=== PATIENT | male | born 1940 | race Caucasian/White ===

== ENCOUNTER 2025-10-25 17:08 | Emergency (ER) | payer MEDICARE, SELFPAY ==
[2025-10-25] VITALS (22 sets, daily range): BP systolic 64–116; BP diastolic 42–70; PULSE 72–105; RESP 13–24; TEMP 35.3–36.4; O2SAT 96–100
--- NOTE | ~2025-10-25 | CT_ITS ---
PROCEDURE: CTA abdomen pelvis INDICATION: GI bleeding . COMPARISON: None. TECHNIQUE: Axial 2.5 mm images of the abdomen and pelvis were obtained without and with infusion of 100 cc [id number] intravenous contrast. On an independent workstation, 0.625 mm reformatted images were utilized to render MIP and MPR reconstructed images of the abdominal and pelvic vasculature. FINDINGS: The abdominal aorta, visceral vessels and renal arteries demonstrate normal caliber and patency. No hemodynamically significant stenosis or aneurysm is identified. The iliac and visualized femoral vessels are widely patent. No aneurysm or hemodynamically significant stenosis is noted. There is a contrast blush within the cecum suggestive of active gastrointestinal bleed. NONVASCULAR FINDINGS: The liver parenchyma is unremarkable. No intrahepatic mass or ductal dilatation is evident. The gallbladder is unremarkable. The pancreas and spleen are normal in appearance. The adrenal glands are symmetric in size. The kidneys are unremarkable. No intrarenal stones are noted. There is no hydronephrosis. There is colonic diverticulosis without evidence of acute diverticulitis. The bladder and rectum are normal in appearance. No free fluid or air is evident. There is no abdominal or pelvic lymphadenopathy. The lower thoracic and lumbar spines are unremarkable. The lung bases are clear. IMPRESSION: Contrast blush within the cecum suggestive of active GI bleed. All CT scans at this facility are performed using low dose modulation techniques as appropriate to perform exam including the following: automated exposure control; use of iterative reconstruction technique; adjustment of the mA and/or kV according to patient size (this includes techniques or standardized protocols for targeted exams where dose is matched to indication/reason for exam). Reviewed, dictated and finalized at location [facility] IMPRESSION: Contrast blush within the cecum suggestive of active GI bleed. All CT scans at this facility are performed using low dose modulation techniqu es as appropriate to perform exam including the following: automated exposure c ontrol; use of iterative reconstruction technique; adjustment of the mA and/or kV according to patient size (this includes techniques or standardized protocol s for targeted exams where dose is matched to indication/reason for exam).
[2025-10-25 17:31] LABS: Hematocrit 30.2 % (42.0-52.0); Hemoglobin 9.9 g/dL (14.0-18.0); Immature Granulocyte Percent A 0.5 % (0-0.5); Lymphocytes Absolute Auto 1.84 K/mm3 (0.9-3.2); Mean Corpuscular HGB Conc 32.8 g/dl (32-36); Mean Corpuscular Hemoglobin 29.0 pg (26-34); Mean Corpuscular Volume 88.6 fl (80-100); Nucleated Red Blood Cells Absolute Auto 0.000 K/mm3 (0.0-0.012); Nucleated Red Blood Cells Perc 0.0 % (0.0-0.2); Platelet Count Result 155 k/mm3 (150-375); Red Blood Count 3.41 M/mm3 (4.6-6.20); White Blood Count 8.2 K/mm3 (4.5-10.0)
--- NOTE | 2025-10-25 17:36 | ECG_ITS ---
Test Date: 2025-10-25 17:40:27 Measurements Intervals [place] Rate: 88 P: 51 CT: 185 QRS: -19 QRSD: 77 T: 49 QT: 355 QTc: 430 Interpretive Statements SINUS RHYTHM POSSIBLE LEFT ATRIAL ENLARGEMENT DELAYED PRECORDIAL R/S TRANSITION BASELINE ARTIFACT- I, III, AVR, AVL, V-V2 BORDERLINE ECG No previous ECG available for comparison Electronically Signed On 10-25-2025 20:16:08 [employer] by Raoul Santa D.O.
[2025-10-25 17:41] LABS: Alanine Aminotransferase 19 U/L (6-50); Albumin Level 3.1 g/dL (3.5-5.1); Alkaline Phosphatase 42 U/L (38-126); Anion Gap 4 mmol/L (4-12); Aspartate Amino Transferase 25 U/L (17-59); Bilirubin,Total 0.8 mg/dL (0.2-1.3); Blood Urea Nitrogen 32 mg/dL (9-20); Calcium 8.0 mg/dL (8.4-10.2); Carbon Dioxide 21 mmol/L (22-30); Chloride 109 mmol/L (98-107); Estimated CRCL calculation 43 ml/min; Estimated Glomerular Filt Rate > 60; Glucose 167 mg/dL (65-110); Potassium 3.8 mmol/L (3.4-5.0); Sodium 134 mmol/L (137-145); Total Protein 5.9 g/dL (6.3-8.2)
--- NOTE | 2025-10-25 17:47 | ED_ITS ---
HPI - GI Bleed General Chief complaint: GI Bleed <JAMAAL Hills Last Filed: 10/26/25 01:42> Stated complaint: Blood in stool <JAMAAL Hills Last Filed: 10/26/25 01:42> Time Seen by Provider: 10/25/25 17:30 <JAMAAL Hills Last Filed: 10/26/25 01:42> Source: patient <JAMAAL Hills Last Filed: 10/26/25 01:42> Mode of arrival: EMS <JAMAAL Hills Last Filed: 10/26/25 01:42> Limitations: no limitations <JAMAAL Hills Last Filed: 10/26/25 01:42> History of Present Illness HPI Narrative: This is an 85-year-old male that presents to the emergency department for GI bleeding. Reports he has had several episodes of bright red blood per rectum today. No previous history of GI bleeding. He take s a baby aspirin daily. < JAMAAL Hills Last Filed: 10/26/25 01:42> Related Data Allergies/Adverse reactions: Allergies Allergy/AdvReac Type Severity Reaction Status Date / Time erythromycin base Allergy Intermediate Abdominal Verified 10/25/25 17:10 Pain <JAMAAL Hills Last Filed: 10/26/25 01:42> Review of Systems 2 Review of Systems: All systems reviewed & are unremarkable except as noted in HPI and below <JAMAAL Hills Last Filed: 10/26/25 01:42> Exam 2 Narrative: GENERAL: Pale, in no acute distress. HEAD: Normocephalic, atraumatic. EYES: EOMI. CHEST: Clear to auscultation. No respiratory distress. No wheezes rales or rhonchi HEART: Regular rate and rhythm. No murmur heard. Normal peripheral pulses. ABDOMEN: Soft, nontender, nondistended, normal active bowel sounds. EXTREMITIES: Normal range of motion. No edema. SKIN: Warm, dry, no rash. NEURO: No focal deficits. Alert and oriented x3. PSYCH: Normal mood and affect RECTAL: No obvious hemorrhoids or fissures. Bright red blood in the rectum <Mandie Brown PA-C - Last Filed: 10/26/25 01:42> Course Course Emergency Course: Patient and family initially requested for patient to be transferred to [facility]. They do not have Interventional Radiology on-call, they will not be able to accept the transfer <Mandie Brown PA-C - Last Filed: 10/26/25 01:42> TECHNICAL SYSTEMS ARCHITECT/PA Physician Supervision This visit was performed by both a physician and an Advanced Practice Provider. I performed all aspects of the Medical Decision Making as documented. I was informed that the patient had initially responded to IV fluids but was becoming hypotensive again prior to receiving blood transfusion and after 2L IVF. I presented to the patient's bedside in readjusted the cough which does continue to demonstrate hypotension. Patient is exceedingly pleasant but pale and diaphoretic. I did advise PA to contact GI again given the change in status and need for more urgent intervention. PA discussed with Dr Celeste who at first thought prep could be performed through NG tube. Patient continues to be hypotensive. Recommended peripheral pressors and likely need to transfer for definitive treatment to control the source of bleeding as I suspect once this is done and he is continued to be resuscitated , he will not likely require continued pressors. RADHA notes his EKG and troponin had been checked initially. Patient's preference was [facility] but PA attempted transfer , IR unavailable at this hour so patient transferred to tertiary care center. I did briefly re- evaluate patient again as helicopter crew arrived. <Kristin Elena MD - Last Filed: 10/26/25 10:31> Vital Signs Vital signs: Vital Signs Temperature 97.5 F L 10/25/25 17:12 Pulse Rate 99 10/25/25 17:12 Respiratory Rate 19 10/25/25 17:12 Blood Pressure 91/53 L 10/25/25 17:12 Pulse Oximetry 100 10/25/25 17:12 Oxygen Delivery Room Air 10/25/25 17:12 Temperature 96.5 F L 10/25/25 22:05 Pulse Rate 100 10/25/25 22:31 Respiratory Rate 24 H 10/25/25 22:31 Blood Pressure 108/57 L 10/25/25 22:31 Pulse Oximetry 98 10/25/25 22:31 Oxygen Delivery Room Air 10/25/25 17:12 <Mandie Brown PA-C - Last Filed: 10/26/25 01:42> Vital Signs Temperature 97.5 F L 10/25/25 17:12 Pulse Rate 99 10/25/25 17:12 Respiratory Rate 19 10/25/25 17:12 Blood Pressure 91/53 L 10/25/25 17:12 Pulse Oximetry 100 10/25/25 17:12 Oxygen Delivery Room Air 10/25/25 17:12 Temperature 96.5 F L 10/25/25 22:05 Pulse Rate 100 10/25/25 22:31 Respiratory Rate 24 H 10/25/25 22:31 Blood Pressure 108/57 L 10/25/25 22:31 Pulse Oximetry 98 10/25/25 22:31 Oxygen Delivery Room Air 10/25/25 17:12 <Kristin Elena MD - Last Filed: 10/26/25 10:31> Transfer Transfered to: [facility] <Mandie Brown PA-C - Last Filed: 10/26/25 01:42> Transportation: [facility] <Mandie Brown PA-C - Last Filed: 10/26/25 01:42> Transfer rationale: Acute GI bleeding, in need of higher level care, interventional Radiology <Mandie Brown PA-C - Last Filed: 10/26/25 01:42> Accepting physician: Dr. Flores <Mandie Brown PA-C - Last Filed: 10/26/25 01:42> [facility] Narrative Medical decision making narrative: Patient presents to the emergency department for for bright red blood per rectum. Several episodes today. Patient's blood pressure soft upon arrival, this did respond IV fluids initially. Patient is not on anticoagulation. Initial hemoglobin 9.9. CTA abdomen pelvis showing contrast blush within the cecum suggestive of active GI bleed. Patient started become more pale, diaphoretic, blood pressures in 60s. Blood transfusion was started. Repeat hemoglobin 7.5. Pressures remained soft, Levophed was started peripherally. Dr. Celeste, GI [facility]. [facility] Patient was transferred via helicopter due to the critical nature of his illness/urgent need for intervention <Mandie Brown PA-C - Last Filed: 10/26/25 01:42> Differential Diagnosis Differential Diagnosis: Diverticulitis, hemorrhoid, polyp, AVM, colitis <Mandie Brown PA-C - Last Filed: 10/26/25 01:42> Lab Data MDM Lab Attestation statement: I personally reviewed the patient's lab results. <Mandie Brown PA-C - Last Filed: 10/26/25 01:42> Result diagrams: 10/25/25 19:57 10/25/25 17:25 <JAMAAL Hills Last Filed: 10/26/25 01:42> Labs: Lab Results 10/25/25 10/25/25 Range/Units 17:25 19:57 WBC 8.2 (4.5-10.0) K/mm3 RBC 3.41 L (4.6-6.20) M/mm3 Hgb 9.9 L 7.5 L (14.0-18.0) g/dL Hct 30.2 L 22.7 L (42.0-52.0) % MCV 88.6 (80-100) fl MCH 29.0 (26-34) pg MCHC 32.8 (32-36) g/dl RDW 14.2 (11.5-14.5) % Plt Count 155 (150-375) k/mm3 MPV 9.9 (7.4-10.4) fl Immature Gran % (Auto) 0.5 (0-0.5) % Neut % (Auto) 69.4 (45.5-73.1) % Lymph % (Auto) 22.5 (18.3-44.2) % Cameron % (Auto) 7.0 (2.6-8.5) % Eos % (Auto) 0.2 (0-4.4) % Baso % (Auto) 0.4 (0.2-1.2) % Lymph # (Auto) 1.84 (0.9-3.2) K/mm3 Cameron # (Auto) 0.6 (0.1-0.6) K/mm3 Eos # (Auto) 0.0 (0-0.3) K/mm3 Baso # (Auto) 0.0 (0.0-0.1) K/mm3 Abs Immat Gran (auto) 0.04 H (0.00-0.031) K/mm3 Absolute Neuts (auto) 5.7 (1.3-6.7) K/mm3 Absolute Nucleated RBC 0.000 (0.0-0.012) K/mm3 Nucleated RBC % 0.0 (0.0-0.2) % PT 15.5 H (11.1-14.7) Seconds INR 1.2 APTT 22.8 (22.3-36.8) Seconds Sodium 134 L (137-145) mmol/L Potassium 3.8 (3.4-5.0) mmol/L Chloride 109 H (98-107) mmol/L Carbon Dioxide 21 L (22-30) mmol/L Anion Gap 4 (4-12) mmol/L BUN 32 H (9-20) mg/dL Creatinine 1.10 (0.7-1.3) mg/dL Estim Creat Clear Calc 43 ml/min Estimated GFR > 60 (59 - ) Glucose 167 H (65-110) mg/dL Calcium 8.0 L (8.4-10.2) mg/dL Total Bilirubin 0.8 (0.2-1.3) mg/dL AST 25 (17-59) U/L ALT 19 (6-50) U/L Alkaline Phosphatase 42 (38-126) U/L Troponin I < 0.012 (0.000-0.034) ng/mL Total Protein 5.9 L (6.3-8.2) g/dL Albumin 3.1 L (3.5-5.1) g/dL Blood Type AB Positive Antibody Screen Negative Crossmatch See Detail <Mandie Brown PA-C - Last Filed: 10/26/25 01:42> Lab Results 10/25/25 10/25/25 Range/Units 17:25 19:57 WBC 8.2 (4.5-10.0) K/mm3 RBC 3.41 L (4.6-6.20) M/mm3 Hgb 9.9 L 7.5 L (14.0-18.0) g/dL Hct 30.2 L 22.7 L (42.0-52.0) % MCV 88.6 (80-100) fl MCH 29.0 (26-34) pg MCHC 32.8 (32-36) g/dl RDW 14.2 (11.5-14.5) % Plt Count 155 (150-375) k/mm3 MPV 9.9 (7.4-10.4) fl Immature Gran % (Auto) 0.5 (0-0.5) % Neut % (Auto) 69.4 (45.5-73.1) % Lymph % (Auto) 22.5 (18.3-44.2) % Cameron % (Auto) 7.0 (2.6-8.5) % Eos % (Auto) 0.2 (0-4.4) % Baso % (Auto) 0.4 (0.2-1.2) % Lymph # (Auto) 1.84 (0.9-3.2) K/mm3 Cameron # (Auto) 0.6 (0.1-0.6) K/mm3 Eos # (Auto) 0.0 (0-0.3) K/mm3 Baso # (Auto) 0.0 (0.0-0.1) K/mm3 Abs Immat Gran (auto) 0.04 H (0.00-0.031) K/mm3 Absolute Neuts (auto) 5.7 (1.3-6.7) K/mm3 Absolute Nucleated RBC 0.000 (0.0-0.012) K/mm3 Nucleated RBC % 0.0 (0.0-0.2) % PT 15.5 H (11.1-14.7) Seconds INR 1.2 APTT 22.8 (22.3-36.8) Seconds Sodium 134 L (137-145) mmol/L Potassium 3.8 (3.4-5.0) mmol/L Chloride 109 H (98-107) mmol/L Carbon Dioxide 21 L (22-30) mmol/L Anion Gap 4 (4-12) mmol/L BUN 32 H (9-20) mg/dL Creatinine 1.10 (0.7-1.3) mg/dL Estim Creat Clear Calc 43 ml/min Estimated GFR > 60 (59 - ) Glucose 167 H (65-110) mg/dL Calcium 8.0 L (8.4-10.2) mg/dL Total Bilirubin 0.8 (0.2-1.3) mg/dL AST 25 (17-59) U/L ALT 19 (6-50) U/L Alkaline Phosphatase 42 (38-126) U/L Troponin I < 0.012 (0.000-0.034) ng/mL Total Protein 5.9 L (6.3-8.2) g/dL Albumin 3.1 L (3.5-5.1) g/dL Blood Type AB Positive Antibody Screen Negative Crossmatch See Detail <Kristin Elena MD - Last Filed: 10/26/25 10:31> Imaging Data Radiologist's impression: ITS Impressions Abdomen/Pelvis CTA 10/25/25 18:39 IMPRESSION: Contrast blush within the cecum suggestive of active GI bleed. All CT scans at this facility are performed using low dose modulation techniques as appropriate to perform exam including the following: automated exposure control; use of iterative reconstruction technique; adjustment of the mA and/or kV according to patient size (this includes techniques or standardized protocols for targeted exams where dose is matched to indication/reason for exam). <Mandie Brown PA-C - Last Filed: 10/26/25 01:42> ITS Impressions Abdomen/Pelvis CTA 10/25/25 18:39 IMPRESSION: Contrast blush within the cecum suggestive of active GI bleed. All CT scans at this facility are performed using low dose modulation techniques as appropriate to perform exam including the following: automated exposure control; use of iterative reconstruction technique; adjustment of the mA and/or kV according to patient size (this includes techniques or standardized protocols for targeted exams where dose is matched to indication/reason for exam). <Kristin Elena MD - Last Filed: 10/26/25 10:31> Critical Care Time Critical Care Time Critical Care Time: Yes <Mandie Brown PA-C - Last Filed: 10/26/25 01:42> Time Type: Continuous <Mandie Brown PA-C - Last Filed: 10/26/25 01:42> Initial evaluation, discuss w/ involved parties, attempting to gather old records: 10 minutes <Mandie Brown PA-C - Last Filed: 10/26/25 01:42> Documenting medical record: 15 minutes <Mandie Brown PA-C - Last Filed: 10/26/25 01:42> Review of results (EKG's, labs, imaging): 10 minutes <Mandie Brown PA-C - Last Filed: 10/26/25 01:42> Serial repeat bedside evaluation: 20 minutes <Mandie Brown PA-C - Last Filed: 10/26/25 01:42> Discussing case with multiple memebers of the care team and consultants: 20 minutes <Mandie Brown PA-C - Last Filed: 10/26/25 01:42> Total Critical Care Time: 75 <Mandie Brown PA-C - Last Filed: 10/26/25 01:42> 75 <Kristin Elena MD - Last Filed: 10/26/25 10:31> Discharge Plan Discharge Clinical Impression: Acute GI bleeding Hypotension Qualifiers: Hypotension type: unspecified hypotension type Qualified Code(s): I95.9 - Hypotension, unspecified Anemia Qualifiers: Anemia type: unspecified type Qualified Code(s): D64.9 - Anemia, unspecified <Mandie Brown PA-C - Last Filed: 10/26/25 01:42> Patient Disposition: [facility] <JAMAAL Hills Last Filed: 10/26/25 01:42> Condition: Critical <Mandie Brown PA-C - Last Filed: 10/26/25 01:42> Patient Language: Hebrew <Mandie Brown PA-C - Last Filed: 10/26/25 01:42> Follow-up/Referrals: PHYSICIAN NOT ON STAFF,NONSTAFF [Non-Staff] <Mandie Brown PA-C - Last Filed: 10/26/25 01:42>
[2025-10-25 17:48] LABS: INR 1.2; Partial Thromboplastin Time 22.8 Seconds (22.3-36.8); Prothrombin Time 15.5 Seconds (11.1-14.7)
[2025-10-25] MEDS: SODIUM CHLORIDE 0.9% IV 500 ML 999 ML IV CONT (17:52)
[2025-10-25 18:15] LABS: Troponin I < 0.012 ng/mL (0.000-0.034)
[2025-10-25] MEDS: SODIUM CHLORIDE 0.9% IV 1,000 ML 999 ML IV CONT ×2 (19:15→20:43)
--- NOTE | 2025-10-25 19:25 | PC.NURSE ---
This RN went to check on pt and his HR had increased and his BP had gotten softer. This RN went and spoke with Mandie HINTON and she said that she was waiting on a consult and that she was going to put in some more fluids. The pts call light was pressed by the timoaghter d/t a drop in HR and BP. This RN retook vitals and spoke with the provider again. Bolus of normal saline was started by this RN. Pts vitals have since started returning to the pts baseline.
--- NOTE | 2025-10-25 19:50 | PC.NURSE ---
Pt. had a small BM of bright red blood in bedpan. RADHA Brown notified.
[2025-10-25 20:11] LABS: Hematocrit 22.7 % (42.0-52.0); Hemoglobin 7.5 g/dL (14.0-18.0)
[2025-10-25] MEDS: ONDANSETRON INJ 4 MG/2 ML VIAL IV PUSH ×2 (20:20→22:44)
[2025-10-25] MEDS: SODIUM CHLORIDE 0.9% IV 250 ML 30 ML IV CONT (20:30)
[2025-10-25] MEDS: NOREPINEPHRINE 8 MG/D5W 250 ML 8 MG/250 ML BAG 9.38 MG IV CONT (20:43)
--- NOTE | 2025-10-25 21:25 | PC.NURSE ---
RADHA Brown at bedside updating pt. and pt. family.
[2025-10-25] MEDS: SODIUM CHLORIDE 0.9% IV 250 ML 15 ML (21:27)
[2025-10-25] MEDS: TUBING, BLOOD SET 1 EACH XX ×2 (21:27)
--- NOTE | 2025-10-25 21:30 | PC.NURSE ---
Both bags of 250mL of normal saline used to prime and flush blood tubing.
--- NOTE | 2025-10-25 21:43 | PC.NURSE ---
This RN spoke with the [facility]. Dr. Flores is the accepting doctor. Pt. going to the MICU.
--- NOTE | 2025-10-25 22:27 | PC.NURSE ---
Pt. accepted at [facility] - room number 8312. Phone number for report is [phone].
--- NOTE | 2025-10-25 22:37 | PC.NURSE ---
Report called to JOLLY Heller. All questions answered.
--- NOTE | 2025-10-25 23:01 | PC.NURSE ---
Pt. leaving with nicardipine infusing at 5mcg/minute.
--- NOTE | 2025-10-25 23:02 | PC.NURSE ---
Report given to Arch. All questions answered.
== END 2025-10-25 23:05 | disposition short-term general hospital (02) ==
PROVIDERS: Emergency Medicine; Emergency Provider Physician Assistant; PCP Pediatrics
DX: K92.2 Gastrointestinal hemorrhage, unspecified (principal); D64.9 Anemia, unspecified; I95.9 Hypotension, unspecified; Z79.82 Long term (current) use of aspirin; R94.31 Abnormal electrocardiogram [ECG] [EKG]
CPT/HCPCS: 36415; 36430; 74174; 80053; 84484; 85014; 85018; 85025; 85610; 85730; 86850; 86900; 86901; 86923; 93005; 96361; 96365; 96366; 96375; 96376; 99285; J2405; J7030; J7040; J7050; P9016; Q9967